=== PATIENT | female | born 1945 | race Caucasian/White ===

== ENCOUNTER 2016-04-22 16:53 | Inpatient (IN) | payer MEDICARE ==
[~2016-04-22] VITALS: Ht 175.3 cm; Wt 78.2 kg
[~2016-04-22 16:53] MED LIST: AMT25T PO; ENOX40DI8 SUBQ; LISI30TA5 PO; OMEP20CA11 PO; OXYC1TAB24 PO
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
[2016-04-22 17:17] VITALS: BP 190/96; PULSE 70; RESP 20; O2SAT 97
--- NOTE | 2016-04-22 17:21 | DRSVH ---
PROCEDURE: CT BRAIN (TPA) ([id number]) INDICATIONS: Stroke TECHNIQUE: Noncontrast 4.5 mm thick angled axial sections acquired from the foramen magnum to the vertex, with c oronal reformats. COMPARISON: None. FINDINGS: Image quality: Excellent. CSF spaces: Basal cisterns are patent. No extra-axial fluid collections. Ventricles are normal in size and shape. Brain: No midline shift. No intracranial masses or hemorrhage. Hernandez-white matter interface is norm al. Skull and face: Calvarium and visualized facial bones are intact, without suspicious lesions. Sinuses: Visualized sinuses and mastoids are clear. IMPRESSION: No contraindication to TPA found, no acute disease seen. This information was immediatel y called to the emergency room at 17:19. This study fulfills neurological imaging criteria for inclusion or exclusion of acute stroke therapie s based on available published neurological imaging guidelines. Dictated by: Gavin Olvias M.D. on 04/22/2016 at 17:14 Approved by: Gavin Olivas M.D. on 04/22/2016 at 17:19
--- NOTE | 2016-04-22 17:23 | NUR ---
spiritual care: code response emotional support to dtr logan almonte pt rec care and assessment.
[2016-04-22 17:30] LABS: BASOPHILS % (AUTO) 0.4 % (0-3); EOSINOPHILS % (AUTO) 1.3 % (0-5); MONOCYTES % (AUTO) 8.9 % (4-12); Mean Corpuscular Volume 85.6 fL (81-100); NEUTROPHILS % (AUTO) 60.2 % (40-74); Platelet Count 216 bil/L (150-400)
[2016-04-22 17:45] LABS: INR 0.95 ratio
[2016-04-22 17:53] LABS: TROPONIN T < 0.010 ug/L (0.0-0.011)
[2016-04-22] MEDS ORDERED: 0.9% Sodium Chloride 500 ML IV ONE (18:50)
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
[2016-04-22] MEDS ORDERED: Polyethylene Glycol (PEG) 17 Gm Powder PO PRN (19:40)
[2016-04-22] MEDS ORDERED: Alum-Mag Hydrox-Simeth 30 mL Suspension PO PRN (19:40)
[2016-04-22] MEDS ORDERED: Ondansetron 2 mg/mL 2 mL Inj IV PRN (19:40)
[2016-04-22 20:03] LABS: APPEARANCE,URINE CLEAR (CLEAR,HAZY); COLOR,URINE YELLOW (YELLOW); PH,URINE 5.5 (5.0-8.0)
[2016-04-22 20:04] VITALS: BP 190/96; PULSE 70; RESP 20; O2SAT 97
[2016-04-22 20:04] LABS: OCCULT BLOOD,URINE NEGATIVE (NEGATIVE); UROBILINOGEN,URINE NORMAL (NORMAL)
--- NOTE | 2016-04-22 21:05 | NUR ---
[place] [facility] [place] [facility] [place] around 2029. NS running in IV-RAC. Pt alert to self, location, year. Struggles to verbalize at times-appears frustrated. Strength equal in all extremities. No facial deficits noted. Pts daughter Nanette present. Pt oriented to room and facility. Besides clothing, family denies having any other personal belongings. Bed in low position, 3 rails up for safety, call light in reach.
[2016-04-22] MEDS ORDERED: KCl 40 mEq/D5W 500 mL 40 MEQ in IV Premix 1 EACH IV ONE (21:15)
[2016-04-22] MEDS: 0.9% Sodium Chloride 1,000 ML IV SCH (21:15)
[2016-04-22 21:30] VITALS: PULSE 67
[2016-04-22] MEDS: Heparin 5,000 Unit/mL Inj SUBQ SCH (21:58)
[2016-04-22] MEDS ORDERED: Labetalol 5 mg/mL 4 mL Inj IVPUSH ONE (22:35)
[2016-04-22 22:43] VITALS: BP 196/109; PULSE 68; RESP 16; O2SAT 98
[2016-04-23] VITALS (7 sets, daily range): BP systolic 151–182; BP diastolic 68–97; PULSE 56–78; RESP 16–18; O2SAT 95–99
[2016-04-23 04:48] LABS: Mean Corpuscular Hemoglobin 27.9 pg (27.0-35.0); Mean Corpuscular Volume 86.4 fL (81-100)
[2016-04-23] MEDS: cefTRIAXone Inj 2,000 MG in Dextrose 5% Minibag Plus 50 ML IV SCH (05:09)
--- NOTE | 2016-04-23 06:07 | NUR ---
Shift Note Very pleasant and cooperative pt, uses call light appropriately and able to make needs known. Appears frustrated with self when unable to express herself. Since admission to the floor, pt appears stronger physically and more expressive in speech. Less word search noted. IV potassium and abx complete, pt tolerated them well. Pt states daughter is her brown support system, was present upon admission to unit. Bed in low position, call light within reach, will continue with frequent rounding.
[2016-04-23] MEDS: 0.9% Sodium Chloride 1,000 ML IV SCH (06:29)
[2016-04-23] MEDS: Heparin 5,000 Unit/mL Inj SUBQ SCH ×2 (09:23→20:05)
--- NOTE | 2016-04-23 10:44 | NUR ---
Evaluation completed. Please go to "Notes" then click on "Assessments and Notes" (bottom left corner of screen). Then select appropriate discipline tab on top of screen.
--- NOTE | 2016-04-23 12:06 | PCM.PNMED ---
Subjective Date of Service Apr 23, 2016 Subjective Patient denied headache, dizziness, visual changes, focal weakness on the arms or legs Noted clear speech, AAOx2 Exam Vital Signs Vital Sign - Last Date Time Temp Pulse Resp B/P Pulse Ox O2 Delivery O2 Flow Rate FiO2 04/23/16 10:12 36.3 56 16 164/89 97 Room Air Intake and Output 04/22/16 04/22/16 04/23/16 Cumulative From/Thru 15:00 23:00 07:00 04/22/16 17:17 - 04/23/16 06:31 Intake Total 1132 ml 1132 ml Balance 1132 ml 1132 ml IV Total 1132 ml 1132 ml Exam NAD, comfortably laying down on the bed no JVD, MMM, no LAD RRR, nl s1, s2 no mrg CTAB, no w,c S,ND,NT,normoactive BS+ warm, no edema, pulses 2/2 Neuro:speech coherent, fluent, PERRLA, EOMI, symmetric face, no uvulae tongue deviation, able shrug shoulders equally able rotate neck equally on both sides motor 5/5 throughout, sensory intact to dull touch IVs and Medications Medications Reviewed: Medications were reviewed in detail Lab and Diagnostics Result Diagram: 04/23/16 0430 04/23/16 0430 X-Rays, CTs and MRIs CT Head Interpretation IMPRESSION: No contraindication to TPA found, no acute disease seen. This information was immediately called to the emergency room at 17:19. This study fulfills neurological imaging criteria for inclusion or exclusion of acute stroke therapies based on available published neurological imaging guidelines. Dictated by: Gavin Olivas M.D. on 04/22/2016 at 17:14 Study: Head CT no contrast Interpretation / Wet Read by: Interpret - Radiologist, Discussed w radiologist 12-lead ECG ECG Interpretation: Sinus rhythm rate 61 T wave inversion in AvR Mild J point elevation in V2, isolated No STEMI Unchanged from prior Time: 18:52 Interpreted by: ED physician Normal ECG Interpretation: No acute ischemic changes Assessment & Plan Patient is a 70 year old female with history of hypertension, restless leg syndrome, and peripheral neuropathy with chronic pain, who was brought to the emergency department by her daughter for speech issues. Patient is admitted for stroke evaluation and work up. Acute, active #slurred speech, presumably acute CVA vs TIA, present on admission. CTH negative , no tPA given unclear onset, -it seems pt has baseline cognitive dysfunction but baseline not confirmed with family, slurred speech not observed. - stroke protocol ordered with swallow/OT/PT - FU MR brain and ECHO - ASA and Atorvastatin started - A1c pending #Urinary tract Infection. Present on admission, follow Urine cultures, continue Ceftriaxone 2 grams daily #Hypertension, present on admission. Active, [id number] overnight, - patient has not been on her BP meds for 7-8 months - Lisinopril restarted, likely allow permissive htn until MRI back, no aggressive control unless SBP>220 or DBP>120 chronic, stable, Acute kidney injury, present on admission. Acute, baseline 0.84 as of , resolved with IVF Chronic pain of neck and low back due to past surgeries - will consider starting on low dose opiates as needed Tobacco dependence, start nicotine patch DVT: Heparin SubQ GI: not indicated CODE: DNR/DNI Dispo: likely tomorrow VTE Prophylaxis: Sub-Q Heparin (Unfractionated) VTE Mechanical Devices: Venous Foot Pump Resuscitation Status: DNR/DNI:Do Not Resuscitate/Intubate Time spent 35min Jere Carcamo MD Apr 23, 2016 12:05
--- NOTE | 2016-04-23 14:11 | DRSVH ---
PROCEDURE: MRI BRAIN WITHOUT CONTRAST ([id number]) INDICATIONS: Stroke TECHNIQUE: Non-contrast axial T1 spin echo, axial T2 fast spin echo, sagittal and axial FLAIR, coronal T2 fast s pin echo, axial gradient echo, axial diffusion and ADC through the brain. COMPARISON: [facility], MR, STROKE PROTOCOL (PN), 09/27/2014, 12:12. FINDINGS: Image quality: Limited by motion artifact. CSF spaces: Ventricles appear symmetric in size and shape. Basal cisterns are patent. No extra-axi al fluid collections. Brain: No intracranial bleeds or mass effects. There is cerebral volume loss for age. There are se tash periventricular and deep white matter chronic small vessel ischemic changes. Brainstem appears normal. Focus of restricted diffusion is noted in the superior margin of right thalamus extending int o the left greenberg radiata compatible with acute infarct. Old, small, lacunar infarcts are noted in th e thalami bilaterally. No chronic ischemic insults. Normal intravascular flow voids are present. Skull and face: Calvarial bone marrow is normal in signal. Orbits are normal. Sinuses: Sinuses and mastoids are clear. IMPRESSION: 1. Small acute lacunar infarct involving the left thalamus and left greenberg radiata. 2. Mild, diffuse volume loss. 3. Severe periventricular and subcortical white matter chronic microvascular ischemic changes. 4. Old, small, bilateral thalamic lacunar infarcts. Dictated by: Lynn Valdez MD, PhD on 04/23/2016 at 14:04 Approved by: Lynn Valdez MD, PhD on 04/23/2016 at 14:09
--- NOTE | 2016-04-23 14:16 | NUR ---
Evaluation completed. Please go to "Notes" then click on "Assessments and Notes" (bottom left corner of screen). Then select appropriate discipline tab on top of screen.
--- NOTE | 2016-04-23 14:26 | DRSVH ---
[facility] [address] [place] [address] Echocardiogram Report Name: JAKUB LEO LStudy Date: 04/23/2016 Height: 69 in Hospital Exam Location: [facility] Weight: 162 lb Gender: Female BSA: 1.9 m2 : 1945 Age: 70 yrs BP: 182/97 mmHg Reason For Study: Stroke Ordering Physician: Performed By: Naz MICHELLEIST [facility] Interpretation Summary Left ventricular wall thickness is moderately increased. The ejection fraction is estimated to be 60-65%. There is basal inferior wall mild hypokinesis. There is mid inferior wall mild hypokinesis. There is mild mitral regurgitation. Procedure: A two-dimensional transthoracic echocardiogram with color flow and Doppler was performed. Comparison is made with the echocardiogram of 01/22/2011. A saline contrast injection was performed to assess for cardiac shunting. The study quality was technically good. The patient was in normal sinus rhythm during the exam. Left Ventricle: The left ventricle is normal in size. Left ventricular wall thickness is moderately increased. The ejection fraction is estimated to be 60-65%. There is basal inferior wall mild hypokinesis. There is mid inferior wall mild hypokinesis. The E/A ratio is reversed with an elevated E/E', suggesting impaired early relaxation of the left ventricle with possible increased filling pressures. Right Ventricle: The right ventricle is normal in size and function. There is mild right ventricular hypertrophy. Atria: The left atrium is severely dilated. Right atrial size is normal. The interatrial septum is intact with no evidence for an atrial septal defect. There is no Doppler evidence for an interatrial shunt. Injection of contrast documented no interatrial shunt. Mitral Valve: The mitral valve is normal in structure and function. The mitral valve leaflets are mildly calcified. There is mild mitral regurgitation. Aortic Valve: The aortic valve is normal in structure and function. No aortic regurgitation is present. Tricuspid Valve: The tricuspid valve is not well visualized, but is grossly normal. There is a trace or physiologic amount of tricuspid regurgitation. Pulmonary artery pressures cannot be estimated because of the lack of a measurable TR jet velocity. Pulmonic Valve: The pulmonic valve is not well seen, but is grossly normal. There is a trace or physiologic amount of pulmonic regurgitation. Great Vessels: The aortic root is normal size. The ascending aorta is normal in size. The aortic arch is normal in size. The IVC is of normal diameter and collapses less than 50% with a sniff. This suggests a right atrial pressure of 8 mm Hg. Pericardium/ Pleura There is a trivial pericardial effusion noted. MMode/2D Measurements & Calculations LVIDd: 4.6 cm LA dimension: 3.8 cm RA long axis LVOT diam: 2.2 cm LVIDs: 3.0 cm AoV Opening FS: 35.0 % LA A2 area: 29.0 cm RA area EPSS: 0.80 cm LA A4 area: 24.9 cm Ao root diam IVSd: 1.4 cm LA length (vol) : 17.8 cm LVPWd: 1.5 cm RA vol Aortic Jxn: 3.1 cm LA vol: 98.5 ml : 49.0 ml asc Aorta Diam LA vol index RA : 25.9 mm2 Ao Arch Diam (Prox Trans): 2.9 cm IVC diam: 1.8 cm LV serrano. diameter/BSA LV sys. diameter/BSA RVD1 (basal) (cm/m^2): 2.4 (cm/m^2): 1.6 Doppler Measurements & Calculations Ao V2 max MV E max hasmukh MV E/A: 0.47 PA V2 max : 168.9 cm/sec : 64.8 cm/sec Med Peak E' Hasmukh : 94.3 cm/sec Ao max PG MV A max hasmukh PA mean PG : 11.4 mmHg : 137.1 cm/sec E/E' med: 18.7 Ao mean PG MV P1/2t: 62.4 msec Lat Peak E' Hasmukh PA Accel Time : 0.14 sec LVOT Max Hasmukh E/E' lat: 16.6 : 98.5 cm/sec E/e' average: 17.7 Pulm A Revs Dur ADAM(I,D): 2.8 cm sev ratio MV A dur: 0.12 sec MV dec time MV P1/2t max hasmukh Ao V2 mean LV V1 max PG : 0.21 sec : 106.4 cm/sec MVA(P1/2t): 3.5 cm2 Ao V2 VTI: 33.1 cm LV V1 VTI ADAM(V,D): 2.3 cm2 : 23.9 cm PA V2 mean ADAM indexed to BSA Pulsony Lipscomb Revs Dur - MV A : 67.4 cm/sec (cm^2/m^2): 1.5 Dur: -0.01 msec Electronically signed by: Howard Cruz on Reading Physician:04/23/2016 02:25 PM
--- NOTE | 2016-04-23 14:43 | NUR ---
Social Work Note Initial Assessment: D/A: The Pt is a 70 y/o female that was admitted for stroke and acute kidney injury according EMR. The Pt's PCP is ISACC Brooks and her primary insurance is Medicare, no LTC or VA benefits. Her readmission risk score is 3. EMR reviewed. SW met with the Pt at bedside to discuss role and discharge planning. The Pt lives alone in a manufactured home in [place], with one daughter and one son living nearby. The Pt does not have a DPOA, paperwork given. She identified her daughter as the person who would fill this role and as her identified support person. The Pt reports that she is mostly independent but pays for a person to assist with cleaning. She uses a cane and a walker. The Pt does not drive and relies on her daughter and neighbors for this activity. The Pt has no HH history but did spend about one month at [facility] in the past. OT evaluation completed, recommending SNF. PT evaluation completed, recommending discharge to SNF via cabulance once medically stable with possible progression to inpatient rehab pending progress. SNF explored, list given. The Pt stated that she had a terrible experience with [facility] and would not like to go there again. She is unsure if she would like to go to a SNF at this time. SW to follow up regarding SNF services. P: The Pt to be discharged when medically stable. OT/PT evaluations completed. OT recommending SNF and PT recommending SNF with possible progression to inpatient rehab pending progress. SNF list given and explored, Pt unsure if she would like to go. BRYANNA will continue to follow and follow up regarding SNF services. REENA Patel Technical Specialist [employer] REENA Gaston Addendum: 04/23/16 at 1444 by JYOTI IGLESIAS Amended: Links added.
--- NOTE | 2016-04-23 15:45 | NUR ---
Pain Pt reports neck/spine pain 6/10 on pain scale, requesting pain medication. 650 mg of PO Tylenol given as ordered. K pad in place. Re-assessment of pain, pt reports pain level decreased to 4/10 and continues to decrease. Repositioned and adjusted Kpad for increased comfort. Call light in place, will continue to monitor,
--- NOTE | 2016-04-23 16:08 | NUR ---
spiritual care; follow up brief visit. pt recalled ER events and described her night/care. Pt agreeable for eucharistic visitor.
[2016-04-24] VITALS (9 sets, daily range): BP systolic 176–187; BP diastolic 79–94; PULSE 63–83; RESP 16–22; O2SAT 96–97
[2016-04-24] MEDS: cefTRIAXone Inj 2,000 MG in Dextrose 5% Minibag Plus 50 ML IV SCH (03:25)
[2016-04-24 06:03] LABS: BASOPHILS % (AUTO) 0.5 % (0-3); EOSINOPHILS % (AUTO) 2.7 % (0-5); Mean Corpuscular Hemoglobin 27.9 pg (27.0-35.0); Mean Corpuscular Volume 87.7 fL (81-100); Platelet Count 191 bil/L (150-400)
--- NOTE | 2016-04-24 06:21 | NUR ---
Neuro Stable Overnight Neuro stable overnight: Denies headache. A/Ox3, slight delay with speech,understand spoken language, slightly right facial droop noted, tongue deviated to the right, full strength bilateral extremities, pt states numbness at right entire leg for 4-5 days,decreased touch sensation at right leg. Pt c/o insomnia, Trazodone ordered and given, pt doze off for a few hours.
[2016-04-24] MEDS: Heparin 5,000 Unit/mL Inj SUBQ SCH ×2 (09:18→20:32)
--- NOTE | 2016-04-24 11:07 | PCM.PNMED ---
Subjective Date of Service Apr 24, 2016 Subjective Patient was more lucid and communicative Knows that she is in the hospital, thinking that she came here because of weakness of the right leg Discussed about findings, new onset acute lacunar infarction secondary to uncontrolled hypertension and hyperlipidemia Patient seemed to understand the importance of controlling her risk factors Patient admitted that she had intermittent headache at home, currently denied Exam Vital Signs Vital Sign - Last Date Time Temp Pulse Resp B/P Pulse Ox O2 Delivery O2 Flow Rate FiO2 04/24/16 10:27 36.5 63 16 184/87 97 Room Air Intake and Output 04/23/16 04/23/16 04/24/16 Cumulative From/Thru 15:00 23:00 07:00 04/22/16 17:17 - 04/24/16 06:22 Intake Total 0 ml 934 ml 50 ml 2116 ml Output Total 210 ml 250 ml 460 ml Balance -210 ml 684 ml 50 ml 1656 ml Intake Oral 0 ml 120 ml 0 ml 120 ml IV Total 814 ml 50 ml 1996 ml Output Urine Total 210 ml 250 ml 460 ml # Voids 2 3 5 # Bowel Movements 0 0 Exam NAD, comfortably laying down on the bed no JVD, MMM, no LAD RRR, nl s1, s2 no mrg CTAB, no w,c S,ND,NT,normoactive BS+ warm, no edema, pulses 2/2 Neuro:speech coherent, fluent, PERRLA, EOMI, symmetric face, no uvulae tongue deviation, able shrug shoulders equally able rotate neck equally on both sides motor 5/5 throughout, sensory intact to dull touch, overall motor slightly weaker on RLE, facial sensory decreased on Rt side, IVs and Medications Medications Reviewed: Medications were reviewed in detail Lab and Diagnostics Result Diagram: 04/24/1651404/24/16 05 X-Rays, CTs and MRIs CT Head Interpretation IMPRESSION: No contraindication to TPA found, no acute disease seen. This information was immediately called to the emergency room at 17:19. This study fulfills neurological imaging criteria for inclusion or exclusion of acute stroke therapies based on available published neurological imaging guidelines. Dictated by: Gavin Olivas M.D. on 04/22/2016 at 17:14 Study: Head CT no contrast Interpretation / Wet Read by: Interpret - Radiologist, Discussed w radiologist 12-lead ECG ECG Interpretation: Sinus rhythm rate 61 T wave inversion in AvR Mild J point elevation in V2, isolated No STEMI Unchanged from prior Time: 18:52 Interpreted by: ED physician Normal ECG Interpretation: No acute ischemic changes Assessment & Plan Patient is a 70 year old female with history of hypertension, restless leg syndrome, and peripheral neuropathy with chronic pain, who was brought to the emergency department by her daughter for speech issues. Patient is admitted for stroke evaluation and work up. Acute, active #slurred speech, secondary to acute lacunar infection based on MRI, left thalamus and left greenberg radiata in the setting of long-standing uncontrolled hypertension and hyperlipidemia, present on admission. CTH negative, no tPA given unclear onset on admission. Patient was noted to have mild confusion initially, improving with very subtle focal deficit with right foot drops on walking. TTE showed normal EF, focal wall motion abnormalities, no shunt. [id number], a1c5.6 - ASA and Atorvastatin started - continue PT/OT today #Cystitis. Present on admission, urine culture positive for pansensitive Escherichia coli, s/p Ceftriaxone 2 grams for 2D, switch to cipro today, finish tomorrow 3days course. #Hypertension, present on admission. Active, BP still 170-180s, no JARQUIN/dizziness. - patient has not been on her BP meds for 7-8 months - Lisinopril restarted, added amlodipine 5mg today, will target <140/90 given lacunar infarction, out of window for permissive htn -continue telemetry for now chronic, stable, Acute kidney injury, present on admission. Acute, baseline 0.84 as of , resolved with IVF Chronic pain of neck and low back due to past surgeries - will consider starting on low dose opiates as needed Tobacco dependence, start nicotine patch DVT: Heparin SubQ GI: not indicated CODE: DNR/DNI Dispo: likely tomorrow SNF VTE Prophylaxis: Sub-Q Heparin (Unfractionated) VTE Mechanical Devices: Intermittant Pneumatic CD, Venous Foot Pump Resuscitation Status: DNR/DNI:Do Not Resuscitate/Intubate Time spent 35 minutes Jere Carcamo MD Apr 24, 2016 11:07
[2016-04-24] MEDS: hydrALAZINE 20 mg/mL Inj IV SCH ×3 (11:38→23:22)
--- NOTE | 2016-04-24 11:51 | NUR ---
Social Work Note: D/A: SW met with Pt at bedside to further explore SNF. PT continues to decline the need for a SNF but is agreeable to HH ([facility] preferred). HH choice list provided. Called [facility] with [facility] and provided referral for HH (RN/PT/ST/OT/ANALYSIS TESTER). F2F in folder. Access given. SW will continue to follow. P: Pt continues to decline SNF services, agreeable to HH ([facility], RN/PT/ST/OT/ANALYSIS TESTER). F2F in folder. Access given. SW will continue to follow. Antoinette Srinivasan, ANALYSIS TESTER [employer] Carrie Gamez MSW
--- NOTE | 2016-04-24 18:32 | NUR ---
Neuro: Pt a/o x3, some delayed speech but speech is clear. No facial droop noted. Pt reports some numbness/tingling to R leg, L leg knee pain r/t knee replacement surgery. 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 Care ongoing.
--- NOTE | 2016-04-24 22:01 | NUR ---
Headache Patient reported 9/10 headache at beginning of NOC shift, Tylenol given earlier ineffective. BP 181/81, stable from earlier measurements. paged with request for PRN Ibuprofen- given. 30 minutes after medication was given, pain level was 2/10, then 0/10 about an hour later.
[2016-04-25] VITALS (9 sets, daily range): BP systolic 162–181; BP diastolic 70–88; PULSE 68–100; RESP 18–20; O2SAT 96
[2016-04-25 05:45] LABS: BASOPHILS % (AUTO) 0.3 % (0-3); EOSINOPHILS % (AUTO) 2.9 % (0-5); MONOCYTES % (AUTO) 10.3 % (4-12); Mean Corpuscular Hemoglobin 28.2 pg (27.0-35.0); Mean Corpuscular Volume 87.3 fL (81-100); NEUTROPHILS % (AUTO) 48.4 % (40-74); Platelet Count 199 bil/L (150-400)
[2016-04-25 06:04] LABS: Magnesium 1.9 mg/dL (1.6-2.6); Phosphorus 4.1 mg/dL (2.5-4.9)
[2016-04-25] MEDS: hydrALAZINE 20 mg/mL Inj IV SCH (06:16)
[2016-04-25] MEDS ORDERED: Influenza (Adult) Vaccine 0.5 mL Syringe IM ONE (08:30)
[2016-04-25] MEDS: Heparin 5,000 Unit/mL Inj SUBQ SCH ×2 (08:43→20:39)
[2016-04-25] MEDS ORDERED: hydrALAZINE 20 mg/mL Inj IV PRN (11:30)
--- NOTE | 2016-04-25 11:36 | PCM.PNMED ---
Subjective Date of Service Apr 25, 2016 Subjective Patient is feeling great, very pleasant Denied speech difficulties communicating well Had intermittent headache resolved with ibuprofen Blood pressure still remaining high 170s to 180s Exam Vital Signs Vital Sign - Last Date Time Temp Pulse Resp B/P Pulse Ox O2 Delivery O2 Flow Rate FiO2 04/25/16 10:54 84 Room Air 04/25/16 10:27 36.6 18 164/85 96 Intake and Output 04/24/16 04/24/16 04/25/16 Cumulative From/Thru 15:00 23:00 07:00 04/22/16 17:17 - 04/25/16 05:24 Intake Total 840 ml 2956 ml Output Total 460 ml Balance 840 ml 2496 ml Intake Oral 840 ml 960 ml IV Total 1996 ml Output Urine Total 460 ml # Voids 3 8 # Bowel Movements 0 Exam NAD, comfortably laying down on the bed no JVD, MMM, no LAD RRR, nl s1, s2 no mrg CTAB, no w,c S,ND,NT,normoactive BS+ warm, no edema, pulses 2/2 Neuro exam grossly unchanged IVs and Medications Medications Reviewed: Medications were reviewed in detail Lab and Diagnostics Result Diagram: 04/25/16 0520 04/25/16 0520 X-Rays, CTs and MRIs CT Head Interpretation IMPRESSION: No contraindication to TPA found, no acute disease seen. This information was immediately called to the emergency room at 17:19. This study fulfills neurological imaging criteria for inclusion or exclusion of acute stroke therapies based on available published neurological imaging guidelines. Dictated by: Gavin Olivas M.D. on 04/22/2016 at 17:14 Study: Head CT no contrast Interpretation / Wet Read by: Interpret - Radiologist, Discussed w radiologist 12-lead ECG ECG Interpretation: Sinus rhythm rate 61 T wave inversion in AvR Mild J point elevation in V2, isolated No STEMI Unchanged from prior Time: 18:52 Interpreted by: ED physician Normal ECG Interpretation: No acute ischemic changes Assessment & Plan Patient is a 70 year old female with history of hypertension, restless leg syndrome, and peripheral neuropathy with chronic pain, who was brought to the emergency department by her daughter for speech issues. Patient is admitted for stroke evaluation and work up. Acute, active #Slurred speech, secondary to acute lacunar infection based on MRI, left thalamus and left greenberg radiata in the setting of long-standing uncontrolled hypertension and hyperlipidemia, present on admission. CTH negative, no tPA given unclear onset on admission. Patient was noted to have mild confusion initially, improving with very subtle focal deficit with right foot drops on walking. TTE showed normal EF, focal wall motion abnormalities, no shunt. [id number], a1c5.6 - ASA and Atorvastatin started - continue PT/OT today #Cystitis. Present on admission, urine culture positive for pansensitive Escherichia coli, s/p Ceftriaxone 2 grams for 2D, switch to cipro today, finish today for 3days course #Hypertension, present on admission. Active, BP still 170-180s, no JARQUIN/dizziness. - patient has not been on her BP meds for 7-8 months - Lisinopril restarted, added amlodipine 5mg, increased to 10mg today, added HCTZ12.5mg, will target <140/90 given lacunar infarction, out of window for permissive htn -continue telemetry for now -monitor electrolytes given new HCTZ instituted. chronic, stable, #acute encephalopathy, POA, possibly due to acute stroke, UTI, resolved with better BP control, abx for UTI. #Acute kidney injury, present on admission. Acute, baseline 0.84 as of , resolved with IVF #Chronic pain of neck and low back due to past surgeries - will consider starting on low dose opiates as needed #Tobacco dependence, start nicotine patch DVT: Heparin SubQ GI: not indicated CODE: DNR/DNI Dispo: likely home with home health tomorrow VTE Prophylaxis: Sub-Q Heparin (Unfractionated) VTE Mechanical Devices: Intermittant Pneumatic CD, Venous Foot Pump Resuscitation Status: DNR/DNI:Do Not Resuscitate/Intubate Time spent 35 minutes Jere Carcamo MD Apr 25, 2016 11:36
--- NOTE | 2016-04-25 15:26 | NUR ---
vtach per tele pt had 14 beats of vtach and was asymptomatic. notified
[2016-04-26 01:37] VITALS: BP 173/82; PULSE 74; RESP 18; O2SAT 95
[2016-04-26 04:33] VITALS: BP 155/77; PULSE 71; RESP 20; O2SAT 96
[2016-04-26 05:06] VITALS: PULSE 61
[2016-04-26 05:58] LABS: BASOPHILS % (AUTO) 0.3 % (0-3); EOSINOPHILS % (AUTO) 3.7 % (0-5); Mean Corpuscular Hemoglobin 27.9 pg (27.0-35.0); Mean Corpuscular Volume 87.5 fL (81-100); NEUTROPHILS % (AUTO) 48.5 % (40-74); Platelet Count 199 bil/L (150-400)
[2016-04-26 06:15] LABS: Magnesium 1.9 mg/dL (1.6-2.6); Phosphorus 4.9 mg/dL (2.5-4.9)
[2016-04-26] MEDS ORDERED: AMLO5TAB2 PO (07:28)
[2016-04-26] MEDS ORDERED: HYDR25TA4 PO (07:28)
[2016-04-26] MEDS ORDERED: ASPI81TA3 PO (07:28)
[2016-04-26] MEDS ORDERED: ATOR40TA69 PO (07:28)
[2016-04-26 08:00] VITALS: PULSE 66
[2016-04-26] MEDS: Heparin 5,000 Unit/mL Inj SUBQ SCH (09:04)
--- NOTE | 2016-04-26 09:23 | PCM.DIMED ---
Discharge Instructions Date of Service Apr 26, 2016 Dates of Hospitalization Apr 22, 2016 at 19:25 Discharge Diagnosis Discharge Diagnosis acute ischemic stroke, lacunar infarction uncontrolled hypertension uncomplicated bladder infection Medication Instructions you were started on new regimen for blood pressure, stroke take aspirin 324mg daily for stroke take amlodipine 10mg daily, hydrochlorothiazide 12.5mg daily for blood pressure take atorvastatin 40mg daily at night for cholesterol Diet Low fat, Low Sodium, Heart Healthy Activity No restrictions Call your provider Weakness (unilateral) Patient Instructions You were hospitalized with acute stroke, likely due to uncontrolled risks factors-high blood pressure, high cholesterol Please follow medicine instruction as above Please note that it is paramount to control your risks factors in order to prevent future stroke and heart attack. Please follow healthy life style, exercise regularly, lots of vegetable/fruits, less fatty/carbohydrate. Follow-up plan Please follow up with your doctor in 2weeks. Follow-up Provider: Loli Brooks PA-C Follow-up with PCP in: 2 weeks Jere Carcamo MD Apr 26, 2016 09:16
[2016-04-26 10:27] VITALS: BP 145/64; PULSE 77; RESP 20; O2SAT 96
[2016-04-26 13:33] VITALS: BP 146/68; PULSE 77; RESP 20; O2SAT 96
--- NOTE | 2016-04-26 16:17 | NUR ---
Social Work: Discharge Data: Pt is on day 4 of hospitalization. EMR reviewed. states pt will d/c today. BILL RECAPITULATION CLERK called [facility] and notified them and faxed over the F2F. No further d/c planning needs at this time. Assessment: Pt who is independent at baseline. Plan: Pt will d/c home via POV today with [facility], RN/PT/OT/BILL RECAPITULATION CLERK/ST. No further d/c planning needs at this time. REENA Schmidt
--- NOTE | 2016-04-26 17:06 | NUR ---
discharge went over dc instructions and medications with pt who verbally acknowledged understanding. removed 2 patent intact IVs. pt left in wheelchair with PRODUCT ASSURANCE ENGINEER to taxi. no s/s of distress at time of dc
--- NOTE | 2016-04-28 11:36 | PCM.DC.MED ---
Discharge Summary Date of Service Apr 26, 2016 Dates of Hospitalization Date of Hospital Admission Apr 22, 2016 at 19:25 Date of Discharge: Apr 26, 2016 Providers: Admitting Physician: Bruce Salazar MD Primary Care Physician: Loli Brooks PA-C Attending Physician: Bruce Salazar MD Diagnosis at Time of Discharge Diagnosis at Time of Discharge acute ischemic stroke, lacunar infarction uncontrolled hypertension uncomplicated bladder infection acute encephalopathy Acute kidney injury #Chronic pain of neck and low back due to past surgeries #Tobacco dependence Procedures XRay, CTs & MRIs CT Head Interpretation IMPRESSION: No contraindication to TPA found, no acute disease seen. This information was immediately called to the emergency room at 17:19. This study fulfills neurological imaging criteria for inclusion or exclusion of acute stroke therapies based on available published neurological imaging guidelines. Dictated by: Gavin Olivas M.D. on 04/22/2016 at 17:14 Study: Head CT no contrast Interpretation / Wet Read by: Interpret - Radiologist, Discussed w radiologist PROCEDURE: MRI BRAIN WITHOUT CONTRAST ([id number]) INDICATIONS: Stroke TECHNIQUE: Non-contrast axial T1 spin echo, axial T2 fast spin echo, sagittal and axial FLAIR, coronal T2 fast spin echo, axial gradient echo, axial diffusion and ADC through the brain. COMPARISON: [facility], , STROKE PROTOCOL (PNL), 09/27/2014, 12: 12. FINDINGS: Image quality: Limited by motion artifact. CSF spaces: Ventricles appear symmetric in size and shape. Basal cisterns are patent. No extra-axial fluid collections. Brain: No intracranial bleeds or mass effects. There is cerebral volume loss for age. There are severe periventricular and deep white matter chronic small vessel ischemic changes. Brainstem appears normal. Focus of restricted diffusion is noted in the superior margin of right thalamus extending into the left greenberg radiata compatible with acute infarct. Old, small, lacunar infarcts are noted in the thalami bilaterally. No chronic ischemic insults. Normal intravascular flow voids are present. Skull and face: Calvarial bone marrow is normal in signal. Orbits are normal. Sinuses: Sinuses and mastoids are clear. IMPRESSION: 1. Small acute lacunar infarct involving the left thalamus and left greenberg radiata. 2. Mild, diffuse volume loss. 3. Severe periventricular and subcortical white matter chronic microvascular ischemic changes. 4. Old, small, bilateral thalamic lacunar infarcts. Dictated by: Lynn Valdez MD, PhD on 04/23/2016 at 14:04 Approved by: Lynn Valdez MD, PhD on 04/23/2016 at 14:09 ECG 12 Lead ECG Interpretation: Sinus rhythm rate 61 T wave inversion in AvR Mild J point elevation in V2, isolated No STEMI Unchanged from prior Time: 18:52 Interpreted by: ED physician Normal ECG Interpretation: No acute ischemic changes Cardiac Echo Impression Echocardiogram Report Name: JAKUB LEO LStudy Date: 04/23/2016 Height: 69 in Hospital Exam Location: [facility] Weight: 162 lb Gender: Female BSA: 1.9 m2 : 1945 Age: 70 yrs BP: 182/97 mmHg Reason For Study: Stroke Ordering Physician: Performed By: Naz Christensen HOSPITALIST [facility] Interpretation Summary Left ventricular wall thickness is moderately increased. The ejection fraction is estimated to be 60-65%. There is basal inferior wall mild hypokinesis. There is mid inferior wall mild hypokinesis. There is mild mitral regurgitation. Brief History The patient is a 70 year old female with history of hypertension, restless leg syndrome, and peripheral neuropathy, who was brought to the emergency department by her daughter for speech issues. The patient feels like she is unable to get her words out. Her daughter last spoke to her on Friday evening over the phone at which time, she had normal speech on the phone. Today when she went to her mother's house, she noticed her speech was abnormal and she was confused. Patient reports she as her usual self before going to bed last night, but when she got up this morning, she felt strange and felt out of balance. Denies any particular side weaker than the other, but endorses imbalance. The patient states that she has had a headache for the last "6 months." She denies fever, chills, nausea, vomiting, chest pain, shortness of breath or cough. Patient has not been taking any of her medications since she was lost to follow up with her PCP. Per daughter, patient also has had issues with non-compliance with her opiates and has been through at least 5 pain clinics. Currently not being prescribed any pain medications due to this. Daughter states that in the recent few months the patient's house has been a mess and is concerned about her well-being. She believes her dementia is getting worse, and has tried to get her some help, but patient does not want to hear it and has been a source of their contention. In the ED, NIHSS of 7. CT head was negative for any bleeds, but TPA was not considered due to uncertain timeline. ECG normal sinus at rate of 61. Labs significant for potassium 3.2, creatinine of 1.42. Patient is admitted for BAKARI and possible stroke. Hospital Course Patient is a 70 year old female with history of hypertension, restless leg syndrome, and peripheral neuropathy with chronic pain, who was brought to the emergency department by her daughter for speech issues. Patient is admitted for stroke evaluation and work up. #Slurred speech, secondary to acute lacunar infection based on MRI, locations: left thalamus and left greenberg radiata in the setting of long-standing uncontrolled hypertension and hyperlipidemia, CTH negative, no tPA given unclear onset on admission despite no CIx. Patient was noted to have mild confusion initially, improved with very subtle focal deficit with mild right foot drops on walking, otherwise neurologically intact. alert and orientedx3, intermittently confused with delirium. TTE showed normal EF, focal wall motion abnormalities, no shunt. [id number], a1c5.6. pt was started on ASA and Atorvastatin. #Cystitis. Present on admission, urine culture positive for pansensitive Escherichia coli, s/p Ceftriaxone 2 grams for 2D, switch to cipro, finished 3days course #Hypertension, present on admission. Active, no JARQUIN/dizziness, it turned out that patient had not been on her BP meds for 7-8 months, Lisinopril restarted, added amlodipine 5mg, increased to 10mg today, added HCTZ12.5mg, for first 2days , BP remained high 180-190s, allowed permissive htn, eventually better controlled with new regimen. SBP 140s upon d/c. Patient was strongly encouraged to control BP more strictly given association with HTN with lacunar infarction. #acute encephalopathy, POA, possibly due to acute stroke, UTI, delirium. resolved with better BP control, abx for UTI. #Acute kidney injury, present on admission. Acute, baseline 0.84 as of , resolved with IVF #Chronic pain of neck and low back due to past surgeries #Tobacco dependence, started nicotine patch Exam Vital Signs (Last) Date Time Temp Pulse Resp B/P Pulse Ox O2 Delivery O2 Flow Rate FiO2 04/26/16 13:33 36.7 77 20 146/68 96 Room Air Exam NAD, comfortably laying down on the bed no JVD, MMM, no LAD RRR, nl s1, s2 no mrg CTAB, no w,c S,ND,NT,normoactive BS+ warm, no edema, pulses 2/2 Neuro exam grossly unchanged Test 04/22/16 17:10 04/22/16 19:30 04/23/16 04:30 04/26/16 05:30 Prothrombin Time 10.2sec (8.1-12.5) Prothromb Time International Ratio 0.95ratio Activated Partial Thromboplast Time 26.3sec (22.8-33.0) Hemoglobin A1c 5.6% (4.8-5.6) Troponin T < 0.010ug/L (0.0-0.011) Triglycerides Level 178mg/dL (0-149) Cholesterol Level 289mg/dL (100-199) LDL Cholesterol, Calculated 147.400mg/dL (0-99) VLDL Cholesterol 35.600mg/dL HDL Cholesterol 106mg/dL (>39) Cholesterol/HDL Ratio 2.73 (0.0-4.4) Hold [place] Top Tube Received (Received) Urine Color Yellow (YELLOW) Urine Appearance Clear (CLEAR,HAZY) Urine pH 5.5 (5.0-8.0) Urine Specific [place] 1.048 (1.003-1.035) Urine Protein 100mg/dL (NEG,TRACE) Urine Glucose (UA) Negativemg/dL (NEGATIVE) Urine Ketones Tracemg/dL (NEGATIVE) Urine Occult Blood Negative (NEGATIVE) Urine Nitrite Positive (NEGATIVE) Urine Bilirubin Negative (NEGATIVE) Urine Urobilinogen Normalmg/dL (NORMAL) Urine Leukocyte Esterase Negative (NEGATIVE) Urine RBC 0-2/hpf (0-2) Urine WBC 11-50/hpf (0-5) Urine Epithelial Cells Moderate/hpf (NONE-MOD) Urine Crystals None seen (NONE SEEN) Urine Bacteria Many/hpf (NONE-FEW) Urine Hyaline Casts None/lpf (NONE) Urine Granular Casts None seen (NONE SEEN) Urine Waxy Casts None seen (NONE SEEN) Urine Red Blood Cell Casts None seen (NONE SEEN) Urine White Blood Cell Casts None seen (NONE SEEN) Urine Mucus None seen (None Seen) Urine Trichomonas None seen (NONE SEEN) Urine Yeast None (NONE SEEN) Urinalysis Comment None Urine Culture Reflexed Indicated Thyroid Stimulating Hormone (TSH) 1.920uIU/mL (0.450-4.500) Free Thyroxine 1.04ng/dL (0.82-1.77) White Blood Count 6.0th/mm3 (3.8-10.1) Red Blood Count 3.83mil/mm3 (3.90-5.20) Hemoglobin 10.7g/dL (12.0-15.6) Hematocrit 33.5% (35.0-46.0) Mean Corpuscular Volume 87.5fL (81-100) Mean Corpuscular Hemoglobin 27.9pg (27.0-35.0) Mean Corpuscular Hemoglobin Concent 31.9% (32.0-37.0) Red Cell Distribution Width 20.9% (12.3-15.4) Platelet Count 199bil/L (150-400) Neutrophils (%) (Auto) 48.5% (40-74) Lymphocytes (%) (Auto) 36.3% (14-46) Monocytes (%) (Auto) 11.0% (4-12) Eosinophils (%) (Auto) 3.7% (0-5) Basophils (%) (Auto) 0.3% (0-3) Sodium Level 142mEq/L (134-144) Potassium Level 3.8mEq/L (3.5-5.2) Chloride Level 105mEq/L (97-108) Carbon Dioxide Level 24mmol/L (18-29) Blood Urea Nitrogen 25mg/dL (8-27) Creatinine 0.76mg/dL (0.57-1.00) Estimat Glomerular Filtration Rate 107mL/min (>59) Glucose Level 102mg/dL (60-99) Calcium Level 8.8mg/dL (8.5-10.1) Phosphorus Level 4.9mg/dL (2.5-4.9) Magnesium Level 1.9mg/dL (1.6-2.6) Total Bilirubin 0.2mg/dL (0.0-1.2) Aspartate Amino Transf (AST/SGOT) 16U/L (0-50) Alanine Aminotransferase (ALT/SGPT) 9U/L (0-32) Alkaline Phosphatase 90U/L (25-165) Total Protein 5.8g/dL (6.4-8.4) Albumin 3.8g/dL (3.4-5.0) Discharge Medications Discharge Medications Amitriptyline (Amitriptyline) 25 Mg Tab 75 MG PO HS (Reported) Amlodipine (Amlodipine) 5 Mg Tablet 10 MG PO DAILY Prescribed by: JERE MCDANIEL MD Aspirin Chew (Aspirin Chew) 81 Mg Chew 324 MG PO DAILY Prescribed by: JERE MCDANIEL MD Atorvastatin Calcium (Atorvastatin Calcium) 40 Mg Tablet 40 MG PO HS Prescribed by: JERE MCDANIEL MD Hydrochlorothiazide (Hydrochlorothiazide) 25 Mg Tablet 12.5 MG PO DAILY Prescribed by: JERE MCDANIEL MD Lisinopril (Lisinopril) 30 Mg Tablet 30 MG PO HS (Reported) Omeprazole (Omeprazole) 20 Mg Capsule.dr 20 MG PO DAILY (Reported) As needed oxyCODONE-Acetaminophen 5-325 mg (oxyCODONE-Acetaminophen 5-325 mg) 1 Tab Tablet 1-2 TAB PO Q4H PRN PRN For Severe Pain Prescribed by: PROMISE WALKER Additional med instructions you were started on new regimen for blood pressure, stroke take aspirin 324mg daily for stroke take amlodipine 10mg daily, hydrochlorothiazide 12.5mg daily for blood pressure take atorvastatin 40mg daily at night for cholesterol Followup Plan Disposition: home with home health Follow-up plan Please follow up with your doctor in 2weeks. Discharge Diet: Low fat, Low Sodium, Heart Healthy Discharge Activity: No restrictions Patient Instructions You were hospitalized with acute stroke, likely due to uncontrolled risks factors-high blood pressure, high cholesterol Please follow medicine instruction as above Please note that it is paramount to control your risks factors in order to prevent future stroke and heart attack. Please follow healthy life style, exercise regularly, lots of vegetable/fruits, less fatty/carbohydrate. Follow-up Provider: Loli Brooks PA-C Follow-up with PCP in: 2 weeks Time spent 65min Jere Mcdaniel MD Apr 28, 2016 11:36
== END 2016-04-26 17:00 | disposition home health service (06) | DRG 65 ==
LOC: SED 16:53 → MPC 19:25
PROVIDERS: ADMIT Hospitalist; ATTEND Hospitalist
DX: I63.9 Cerebral infarction, unspecified (principal); N17.9 Acute kidney failure, unspecified; N39.0 Urinary tract infection, site not specified; B96.20 Unspecified Escherichia coli [E. coli] as the cause of diseases classified elsewhere; R47.01 Aphasia; G62.9 Polyneuropathy, unspecified; Z66 Do not resuscitate; I10 Essential (primary) hypertension; E78.5 Hyperlipidemia, unspecified; F03.90 Unspecified dementia, unspecified severity, without behavioral disturbance, psychotic disturbance, mood disturbance, and anxiety; R40.2362 Coma scale, best motor response, obeys commands, at arrival to emergency department; R40.2142 Coma scale, eyes open, spontaneous, at arrival to emergency department; R40.2252 Coma scale, best verbal response, oriented, at arrival to emergency department; G25.81 Restless legs syndrome; G89.29 Other chronic pain; F17.200 Nicotine dependence, unspecified, uncomplicated

== ENCOUNTER 2016-07-26 20:58 | Emergency (ER) | payer MEDICARE ==
[~2016-07-26] VITALS: Ht 175.3 cm; Wt 79.5 kg
[~2016-07-26 20:58] MED LIST changes: +AMLO5TAB2 PO; +ASPI81TA3 PO; +ATOR40TA69 PO; -ENOX40DI8 SUBQ; +HYDR25TA4 PO
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
[2016-07-26 21:19] VITALS: BP 127/52; PULSE 98; RESP 18; O2SAT 96
[2016-07-26 21:37] LABS: BASOPHILS % (AUTO) 0.1 % (0-3); EOSINOPHILS % (AUTO) 0 % (0-5); MONOCYTES % (AUTO) 20.1 % (4-12); Mean Corpuscular Hemoglobin 29.4 pg (27.0-35.0); Mean Corpuscular Volume 96.3 fL (81-100); NEUTROPHILS % (AUTO) 66.8 % (40-74); Platelet Count 235 bil/L (150-400)
[2016-07-26 21:47] LABS: TROPONIN T 0.01 ug/L (0.0-0.011)
[2016-07-26] MEDS: fentaNYL-PF 50 mCg/mL 2 mL Inj IVPUSH PRN ×3 (21:51→22:48)
[2016-07-26] MEDS ORDERED: 0.9% Sodium Chloride 250 ML ONE ×2 (23:16→23:21)
[2016-07-26] MEDS: HYDROmorphone 0.5 mg/0.5 mL iSecure Syringe IVPUSH PRN (23:58)
[2016-07-27] MEDS: HYDROmorphone 0.5 mg/0.5 mL iSecure Syringe IVPUSH PRN ×4 (00:41→02:45)
[2016-07-27 01:14] VITALS: BP 157/60; PULSE 78; RESP 14; O2SAT 98
[2016-07-27] MEDS ORDERED: 0.9% Sodium Chloride 500 ML ONE (01:37)
[2016-07-27] MEDS ORDERED: Pantoprazole Inj 80 MG in 0.9% Sodium Chloride 100 ML IV ONE (02:05)
[2016-07-27] MEDS ORDERED: Pantoprazole Inj 80 MG in 0.9% Sodium Chloride 80 ML IV SCH (02:05)
[2016-07-27] MEDS ORDERED: HYDROmorphone 1 mg/mL Inj IVPUSH PRN (03:00)
[2016-07-27 03:25] VITALS: BP 142/74; PULSE 76; RESP 14; O2SAT 95
--- NOTE | 2016-07-27 06:00 | DRSVH ---
PROCEDURE: CT BRAIN WITHOUT CONTRAST ([id number]) INDICATIONS: fall, shock TECHNIQUE: Noncontrast 4.5 mm thick angled axial sections acquired from the foramen magnum to the vertex, with c oronal reformats. COMPARISON: [facility], CT, BRAIN (TPA), 04/22/2016, 17:02. FINDINGS: Image quality: Excellent. CSF spaces: Basal cisterns are patent. No extra-axial fluid collections. The ventricles are symmet scott in size and shape. Brain: No intracranial bleeds or masses. There is cerebral volume loss for age, with resultant vent ricular and sulcal prominence. There are periventricular and deep white matter chronic small vessel ischemic changes. There is intracranial internal carotid artery atherosclerosis. Skull and face: Calvarium and visualized facial bones appear intact, without suspicious lesions. Sinuses: Visualized sinuses and mastoids are clear. IMPRESSION: 1. No acute intracranial process. 2. Moderate atrophy and chronic microvascular ischemic changes. Dictated by: Laney Cary M.D. on 07/27/2016 at 5:57 Approved by: aLney Cary M.D. on 07/27/2016 at 5:58
--- NOTE | 2016-07-27 06:03 | DRSVH ---
PROCEDURE: CT KNEE RIGHT W/O CONTRAST ([id number]) INDICATIONS: trauma TECHNIQUE: Noncontrast 1-1.5 mm axial sections acquired from the mid-patella to the proximal tibia, with coronal and sagittal reformats. COMPARISON: [facility], CR, XR FEMUR 2VW RT, 07/27/2016, 1:16. FINDINGS: Image quality: Excellent. There is an oblique, comminuted fracture of the distal femur with approximately 3.5 cm overlap of the proximal and distal fragments. There is a slight appearance of dorsal angulation. Knee arthroplasty is present with prominent metallic streak hardware. It is noted that the fracture does extend along t he superior margin of the arthroplasty. Visualize portions of the arthroplasty hardware appear intact . Diffuse soft tissue swelling is present. Joint effusion is likely present, although obscured second tobi to metallic streak artifact. IMPRESSION: 1. Comminuted distal femur fracture with extension along the superior aspect of the knee arthroplasty as above. Dictated by: Laney Cary M.D. on 07/27/2016 at 5:58 Approved by: Laney Cary M.D. on 07/27/2016 at 6:01
--- NOTE | 2016-07-27 06:07 | DRSVH ---
PROCEDURE: CT ABDOMEN AND PELVIS WITHOUT CONTRAST ([id number]) INDICATIONS: GLF, severe anemia, renal insuff. TECHNIQUE: Noncontrast 5 mm thick sections acquired from the diaphragms to the symphysis. 5 mm coronal and sagi ttal reformats were then performed. For radiation dose reduction, the following was used: automated exposure control, adjustment of mA and/or kV according to patient size. COMPARISON: None. FINDINGS: Image quality: Excellent. ABDOMEN: Lung bases: Lung bases are clear. Heart size is normal. Solid organs: Liver and spleen are normal in size. Gallbladder is unremarkable. There is mild prom inence of the common bile duct which has been unchanged since 08/15/08. Pancreas is normal in contours . No adrenal nodules. Kidneys are normal in size, without hydronephrosis or nephrolithiasis. Left renal cyst is present. Peritoneum and bowel: Unenhanced bowel loops demonstrate normal wall thickness and caliber. No free fluid or air. Nodes and vessels: No retroperitoneal or mesenteric adenopathy by size criteria. Aorta and inferior vena cava are normal in caliber. Miscellaneous: No ventral hernias. PELVIS: Genitourinary: Bladder is contracted. However, evaluation is limited secondary to metallic streak a rtifact from right hip arthroplasty. Miscellaneous: No inguinal hernias or adenopathy. Bones: No suspicious bony lesions. No vertebral body compression fractures. Posterior lumbar fixat ion is present. Right hip arthroplasty is present. IMPRESSION: 1. No visualized acute osseous or visceral injury. Dictated by: Laney Cary M.D. on 07/27/2016 at 6:01 Approved by: Laney Cary M.D. on 07/27/2016 at 6:05
--- NOTE | 2016-07-27 06:15 | DRSVH ---
PROCEDURE: CT CERVICAL SPINE WITHOUT CONTRAST ([id number]) INDICATIONS: fall, shock TECHNIQUE: Noncontrast 3 mm thick sections acquired from the skull base to the T4 level. Sagittal and coronal r eformats were then constructed. For radiation dose reduction, the following was used: automated exp osure control, adjustment of mA and/or kV according to patient size. COMPARISON: [facility], CT, C-SPINE W/O CONTRAST, 04/18/2010, 18:22. FINDINGS: Image quality: Excellent. Bones: Anterior and posterior cervical fusion is present from C3-C7. Appearance is unchanged compared to prior exams. There is no visualized fracture or dislocation. Degenerative changes are present at C1-2. Soft tissues: Prevertebral soft tissues are normal in thickness. No paravertebral hematomas. No ap ical pneumothoraces. IMPRESSION: 1. Extensive fusion as above without evidence of underlying fracture. Dictated by: Laney Cary M.D. on 07/27/2016 at 6:06 Approved by: Laney Cary M.D. on 07/27/2016 at 6:13
--- NOTE | 2016-07-27 06:34 | DRSVH ---
PROCEDURE: X-RAY PELVIS W/LAT HIP (RT) ([id number]) INDICATIONS: fall, pain TECHNIQUE: AP pelvis with lateral view(s) of the right hip(s). COMPARISON: [facility], CR, PELVIS W/LAT HIP (LT) (PNL), 07/05/2014, 15:25. [facility], CR, XR FEMUR 2VW RT, 07/27/2016, 1:16. FINDINGS: Bones: No fractures or dislocations. Right hip arthroplasty. Pelvic ring appears intact. No suspici ous bony lesions. Soft tissues: The visualized bowel gas pattern is normal. No suspicious soft tissue calcifications. IMPRESSION: Right hip arthroplasty. No visualized acute fracture or dislocation. However, if clinical concern and/or pain persist, short interval imaging followup in 7-10 days is recommended, as occult injury cannot be definitively excluded. Dictated by: Laney Cary M.D. on 07/27/2016 at 6:31 Approved by: Laney Cary M.D. on 07/27/2016 at 6:32
--- NOTE | 2016-07-27 06:38 | DRSVH ---
PROCEDURE: X-RAY LUMBAR SPINE, 2 OR 3 VIEW INDICATIONS: fall, pain TECHNIQUE: 3 views of the lumbar spine were acquired. COMPARISON: [facility], CT, CT KNEE RT WO CON, 07/27/2016, 0:14. [facility], MR, LUMBAR SPINE W&W/O CONTRAST, 03/20/2011, 13:19. [facility], CT, CT ABD PELVIS W O CON, 07/27/2016, 0:14. FINDINGS: Bones: 5 [id number] vertebrae are present. Multilevel degenerative changes are present. There is posterior fixation at L2-3. No vertebral body compression fractures. No suspicious bony lesions. Multilevel degenerative changes are present. T12 superior endplate compression deformity is present and unchanged Soft tissues: Overlying bowel gas pattern is normal. No suspicious soft tissue calcifications. IMPRESSION: Multilevel degenerative changes without evidence of acute Dictated by: Laney Cary M.D. on 07/27/2016 at 6:32 Approved by: Laney Cary M.D. on 07/27/2016 at 6:36
--- NOTE | 2016-07-27 06:41 | DRSVH ---
PROCEDURE: X-RAY RIGHT KNEE, ONE OR TWO VIEWS ([id number]) INDICATIONS: right knee pain and swelling TECHNIQUE: 3 views of the knee were acquired. COMPARISON: None. FINDINGS: Bones: There is a comminuted fracture with posterior angulation of the distal femur with approximate 3.5 cm fracture overlap. Knee arthroplasty is present. Although hardware appears intact, fracture obrien s appear to extend along the superior margin of the hardware. Soft tissues: There is a moderate joint effusion. No suspicious soft tissue calcifications. IMPRESSION: Comminuted, angulated distal femoral fracture with extension into the superior aspect of the knee arthroplasty. Dictated by: Laney Cary M.D. on 07/27/2016 at 6:38 Approved by: Laney Cary M.D. on 07/27/2016 at 6:39
--- NOTE | 2016-07-27 06:42 | DRSVH ---
PROCEDURE: X-RAY CHEST ONE VIEW, PORTABLE ([id number]) INDICATIONS: fall, pain TECHNIQUE: One view of the chest was acquired. COMPARISON: [facility], , CHEST 1VW (PORTABLE), 09/26/2014, 19:27. FINDINGS: Surgical changes and devices: Cervical and lower lumbar fixation screws are partially visualized. Lungs and pleura: There is an increased in appearance of pulmonary vascularity. Mediastinum: Mediastinal contours appear normal. Heart size is normal. Bones and chest wall: No suspicious bony lesions. Overlying soft tissues appear unremarkable. IMPRESSION: Increased appearance of pulmonary vascularity suggestive of edema. Dictated by: Laney Cary M.D. on 07/27/2016 at 6:39 Approved by: Laney Cary M.D. on 07/27/2016 at 6:40
--- NOTE | 2016-07-27 06:51 | DRSVH ---
PROCEDURE: X-RAY RIGHT FEMUR, TWO VIEWS ([id number]) INDICATIONS: trauma TECHNIQUE: 2 views of the femur were acquired. COMPARISON: [facility], CR, XR KNEE 1 OR 2VW RT, 07/26/2016, 21:40. FINDINGS: Bones: Left knee arthroplasty is present. There is a comminuted fracture of the distal femur, slightl y less angulated when compared to prior exam. Although arthroplasty hardware appears intact, fracture line does appear to extend along the superior aspect. Soft tissues: No suspicious soft tissue calcifications or masses. IMPRESSION: Comminuted distal femoral fracture with slightly decreased angulation as above. Dictated by: Laney Cary M.D. on 07/27/2016 at 6:48 Approved by: Laney Cary M.D. on 07/27/2016 at 6:50
== END 2016-07-27 03:15 | disposition short-term general hospital (02) ==
LOC: SED 20:58
DX: S72.401A Unspecified fracture of lower end of right femur, initial encounter for closed fracture (principal); W18.30XA Fall on same level, unspecified, initial encounter; Y93.9 Activity, unspecified; Y92.009 Unspecified place in unspecified non-institutional (private) residence as the place of occurrence of the external cause; Y99.9 Unspecified external cause status; D64.9 Anemia, unspecified; K92.2 Gastrointestinal hemorrhage, unspecified; I10 Essential (primary) hypertension; F03.90 Unspecified dementia, unspecified severity, without behavioral disturbance, psychotic disturbance, mood disturbance, and anxiety; F17.200 Nicotine dependence, unspecified, uncomplicated; Z79.82 Long term (current) use of aspirin; Z79.899 Other long term (current) drug therapy; Z88.8 Allergy status to other drugs, medicaments and biological substances
CPT/HCPCS: 36415; 36430; 51702; 70450; 71010; 72100; 72125; 73501; 73551; 73560; 73700; 74176; 80053; 82550; 84484; 85014; 85018; 85025; 86922; 93005; 96361; 96374; 96375; 96376; 99285; J1170; J3010; P9021